=== PATIENT | male | born 1960 | race Caucasian/White ===

== ENCOUNTER 2017-04-25 12:28 | Emergency (ER) | payer OTHER ==
[~2017-04-25] VITALS: Ht 165.1 cm; Wt 72.7 kg
[~2017-04-25 12:28] MED LIST: ADVAIR 250/28 DISKUS IH; ALLERGY MED; ASPIRIN E.C. 8181 MG PO; CETIRIZINE PO; COZAAR 50MG50 MG/TAB PO; DAILY MULTI VIT1 TAB PO; FLEXERIL 1010 MG/TAB PO; LIPITOR 10MG10 MG PO; LISINOPRIL/HCTZ1 TAB PO; MUCINEX 60600 MG/TA1 PO; NORCO 325 MG-51 TAB PO; PHENERGAN W/CO120 ML PO; RT ADVAIR 228 DISKUS IH; SINGULAIR 110 MG/TAB PO; VENTOLIN0.09 MG IH; VITAMINC500CH PO; ZITHROMAX 250M250 MG PO
[2017-04-25 12:31] VITALS: BP 145/85; TEMP 97.7
[2017-04-25 13:39] VITALS: PULSE 69
== END 2017-04-25 13:40 | disposition home or self-care (01) ==
LOC: COL.ER 12:28
DX: S30.0XXA Contusion of lower back and pelvis, initial encounter (principal); Z79.82 Long term (current) use of aspirin; Z98.890 Other specified postprocedural states; W18.31XA Fall on same level due to stepping on an object, initial encounter; Y92.009 Unspecified place in unspecified non-institutional (private) residence as the place of occurrence of the external cause

== ENCOUNTER 2019-03-18 22:11 | Emergency (ER) | payer OTHER ==
[~2019-03-18] VITALS: Ht 165.1 cm; Wt 76.4 kg
[2019-03-18 22:21] VITALS: BP 157/94; TEMP 98.2
[2019-03-18] MEDS ORDERED: AMBIEN 10MG10 MG PO (22:41)
[2019-03-18 23:48] VITALS: PULSE 99
== END 2019-03-18 23:49 | disposition home or self-care (01) ==
LOC: COL.ER 22:11
DX: S16.1XXA Strain of muscle, fascia and tendon at neck level, initial encounter (principal); J45.909 Unspecified asthma, uncomplicated; E78.5 Hyperlipidemia, unspecified; I10 Essential (primary) hypertension; Z79.82 Long term (current) use of aspirin; Z79.51 Long term (current) use of inhaled steroids; Z87.891 Personal history of nicotine dependence; V43.52XA Car driver injured in collision with other type car in traffic accident, initial encounter

== ENCOUNTER 2022-05-28 14:45 | Outpatient (CLI) | payer MEDICARE ==
[~2022-05-28] VITALS: Ht 165.1 cm; Wt 77.9 kg
[~2022-05-28 14:45] MED LIST changes: +AMBIEN 10MG10 MG PO
[2022-05-28 15:13] VITALS: BP 111/76; PULSE 79; TEMP 97.8
== END 2022-05-28 16:27 ==
LOC: EUO 14:45
DX: Z79.899 Other long term (current) drug therapy (principal)
CPT/HCPCS: J2182

== ENCOUNTER 2022-06-25 14:59 | Outpatient (CLI) | payer MEDICARE ==
[~2022-06-25] VITALS: Ht 165.1 cm; Wt 80.9 kg
[2022-06-25] MEDS ORDERED: KLONOPIN 0.5MG0.5 MG PO (15:50)
[2022-06-25] MEDS ORDERED: ZOLOFT 50MG50 MG PO (15:51)
[2022-06-25 15:53] VITALS: BP 103/84; PULSE 78; TEMP 97.8
== END 2022-06-25 17:02 | disposition home or self-care (01) ==
LOC: EUO 14:59
DX: Z79.899 Other long term (current) drug therapy (principal)
CPT/HCPCS: J2182

== ENCOUNTER 2022-08-21 15:50 | Outpatient (CLI) | payer MEDICARE ==
[~2022-08-21] VITALS: Ht 165.1 cm; Wt 79.7 kg
[~2022-08-21 15:50] MED LIST changes: +KLONOPIN 0.5MG0.5 MG PO; +ZOLOFT 50MG50 MG PO
[2022-08-21 16:11] VITALS: BP 133/90; PULSE 81; TEMP 98.4
== END 2022-08-21 16:39 | disposition home or self-care (01) ==
LOC: EUO 15:50
DX: Z79.899 Other long term (current) drug therapy (principal)
CPT/HCPCS: J2182

== ENCOUNTER 2022-11-16 12:46 | Outpatient (CLI) | payer MEDICARE ==
[~2022-11-16] VITALS: Ht 165.1 cm; Wt 79.9 kg
[2022-11-16 13:09] VITALS: BP 125/82; PULSE 72; TEMP 97.6
== END 2022-11-16 13:40 | disposition home or self-care (01) ==
LOC: EUO 12:46
DX: Z51.81 Encounter for therapeutic drug level monitoring (principal)
CPT/HCPCS: J2182

== ENCOUNTER 2022-12-18 07:57 | Outpatient (CLI) | payer MEDICARE ==
[~2022-12-18] VITALS: Ht 165.1 cm; Wt 82.0 kg
[2022-12-18 08:37] VITALS: BP 140/84; PULSE 85; TEMP 98.1
== END 2022-12-18 08:54 | disposition home or self-care (01) ==
LOC: EUO 07:57
DX: Z79.899 Other long term (current) drug therapy (principal)
CPT/HCPCS: J2182

== ENCOUNTER 2023-01-15 12:57 | Outpatient (CLI) | payer MEDICARE ==
[~2023-01-15] VITALS: Ht 165.1 cm; Wt 80.2 kg
[2023-01-15 13:40] VITALS: BP 123/81; PULSE 85; TEMP 97.8
== END 2023-01-15 13:47 ==
LOC: EUO 12:57
DX: Z51.81 Encounter for therapeutic drug level monitoring (principal)
CPT/HCPCS: J2182

== ENCOUNTER 2023-03-12 14:03 | Outpatient (CLI) | payer MEDICARE ==
[~2023-03-12] VITALS: Ht 165.1 cm; Wt 79.0 kg
[2023-03-12 14:00] VITALS: BP 117/82; PULSE 80; TEMP 97.8
== END 2023-03-12 14:40 | disposition home or self-care (01) ==
LOC: EUO 14:03
DX: Z51.81 Encounter for therapeutic drug level monitoring (principal)
CPT/HCPCS: J2182

== ENCOUNTER 2023-07-02 15:37 | Outpatient (CLI) | payer MEDICARE ==
[~2023-07-02] VITALS: Ht 165.1 cm; Wt 77.3 kg
[2023-07-02 15:59] VITALS: BP 118/78; PULSE 67; TEMP 97
== END 2023-07-02 16:00 | disposition home or self-care (01) ==
LOC: EUO 15:37
DX: J33.9 Nasal polyp, unspecified (principal)
CPT/HCPCS: J2182

== ENCOUNTER 2023-07-30 13:52 | Outpatient (CLI) | payer MEDICARE ==
[~2023-07-30] VITALS: Ht 165.1 cm; Wt 78.9 kg
[2023-07-30 14:14] VITALS: BP 111/73; PULSE 78; TEMP 98.5
[2023-07-30] MEDS ORDERED: NUCALA100 MG/1 M SQ (14:17)
--- NOTE | 2023-07-30 14:25 | NUR ---
Pt tolerated nucala without issue. He exits dept with steady gait.
[2023-08-04] MEDS ORDERED: BENTYL 20MG20 MG/TAB PO (15:52)
[2023-08-04] MEDS ORDERED: CRESTOR20 MG PO (15:53)
[2023-08-04] MEDS ORDERED: COLESTID 1GM1 G PO (15:54)
[2023-08-04] MEDS ORDERED: PRIL40 PO (15:54)
[2023-08-04] MEDS ORDERED: KLONOPIN 0.5MG0.5 MG PO (15:56)
== END 2023-07-30 14:25 | disposition home or self-care (01) ==
LOC: EUO 13:52
DX: J33.9 Nasal polyp, unspecified (principal)
CPT/HCPCS: J2182

== ENCOUNTER 2023-11-01 10:40 | Outpatient (CLI) | payer MEDICARE ==
[~2023-11-01] VITALS: Ht 162.6 cm; Wt 82.2 kg
[~2023-11-01 10:40] MED LIST changes: +BENTYL 20MG20 MG/TAB PO; +COLESTID 1GM1 G PO; +CRESTOR20 MG PO; +NUCALA100 MG/1 M SQ; +PRIL40 PO
[2023-11-01 10:58] VITALS: BP 145/88; PULSE 68; TEMP 98.1
[2023-11-01] MEDS ORDERED: Mepolizumab 100 MG VIAL SQ ONE (11:00)
--- NOTE | 2023-11-01 11:24 | NUR ---
PT TOLERATED INJECTION WELL. AMBULATES INDEPENDENTLY TO MAIN LOBBY FOLLOWING INJECTION AND VS REMAINED WITHIN NORMAL LIMITS.
== END 2023-11-01 11:25 | disposition home or self-care (01) ==
LOC: EUO 10:40
DX: J33.9 Nasal polyp, unspecified (principal)
CPT/HCPCS: J2182

== ENCOUNTER 2023-11-29 09:49 | Outpatient (CLI) | payer MEDICARE ==
[2023-11-29] MEDS ORDERED: Mepolizumab 100 MG VIAL SQ ONE (10:00)
[2023-11-29 10:18] VITALS: BP 136/86; PULSE 71; TEMP 98.2
== END 2023-11-29 10:27 ==
LOC: EUO 09:49
DX: J33.9 Nasal polyp, unspecified (principal)
CPT/HCPCS: J2182

== ENCOUNTER 2024-04-18 12:54 | Outpatient (CLI) | payer MEDICARE ==
[~2024-04-18] VITALS: Ht 162.6 cm; Wt 81.2 kg
[2024-04-18 13:02] VITALS: BP 132/86; PULSE 81; TEMP 98.2
[2024-04-18] MEDS ORDERED: Mepolizumab 100 MG VIAL SQ ONE (13:15)
== END 2024-04-18 13:25 | disposition home or self-care (01) ==
LOC: EUO 12:54
DX: J33.9 Nasal polyp, unspecified (principal)
CPT/HCPCS: J2182

== ENCOUNTER 2024-06-21 11:58 | Emergency (ER) | payer MEDICARE ==
[~2024-06-21] VITALS: Ht 165.1 cm; Wt 122.7 kg
[2024-06-21 12:08] VITALS: TEMP 98.3
[2024-06-21] MEDS ORDERED: NS 500 ML IV ONE (12:45)
[2024-06-21 12:46] LABS: BASO % 0.2 % (0.0-2.0); EOS % 0.2 % (0.0-4.0); GRAN # 6.8 K/mm3 (1.4-6.5); GRAN % 67.3 % (42.2-75.2); HEMATOCRIT 42.3 % (42.0-52.0); HEMOGLOBIN 14.2 g/dl (13.5-18.0); LYMPH # 2.6 K/mm3 (1.2-3.4); LYMPH % 25.2 % (20.0-51.0); MEAN CELL VOLUME 93 fl (80.0-100.0); MEAN CORPUSCULAR HEMOGLOBIN 31 pg (27-31); MEAN CORPUSCULAR HGB CONC 34 g/dl (33.0-37.0); MEAN PLATELET VOLUME 11.2 fl (7.4-10.4); MONO # 0.7 K/mm3 (0.1-0.6); MONO % 6.8 % (1.7-9.3); PLATELET COUNT 230 K/mm3 (130-400); RED BLOOD COUNT 4.53 M/mm3 (4.20-5.60); REDCELL DISTRIBUTION WIDTH-CV 12.2 % (11.5-14.5)
[2024-06-21 13:02] LABS: ALANINE AMINOTRANSFERASE 20 U/L (0-55); ALBUMIN 3.7 g/dL (3.4-4.8); ALKALINE PHOSPHATASE 81 U/L (40-150); ANION GAP 10 mmol/L (7-16); AST,SGOT 20 U/L (5-34); BILIRUBIN,TOTAL 0.6 mg/dL (0.2-1.2); BLOOD UREA NITROGEN 15 mg/dL (8-26); CALCIUM 9.3 mg/dL (8.4-10.2); CHLORIDE 103 mEq/L (98-107); CREATININE, serum 1.17 mg/dL (0.72-1.25); GLUCOSE 118 mg/dL (70-99); LIPASE 37 U/L (8-78); POTASSIUM 3.9 mEq/L (3.5-4.5); SODIUM 136 mEq/L (136-145); TOTAL PROTEIN 7.3 g/dl (6.2-8.1)
[2024-06-21 13:21] LABS: TROPONIN-I < 0.010 ng/mL (0.00-0.033)
[2024-06-21 15:43] VITALS: BP 120/80; PULSE 63
== END 2024-06-21 15:43 | disposition home or self-care (01) ==
LOC: COL.ER 11:58
PROVIDERS: Emergency Medicine
DX: R07.89 Other chest pain (principal); R53.83 Other fatigue; Z79.82 Long term (current) use of aspirin
CPT/HCPCS: J7040

== ENCOUNTER 2024-08-08 16:00 | Outpatient (CLI) | payer MEDICARE ==
[~2024-08-08] VITALS: Ht 165.1 cm; Wt 79.7 kg
[2024-08-08 16:13] VITALS: BP 155/105; PULSE 84; TEMP 98.5
[2024-08-08] MEDS ORDERED: Mepolizumab 100 MG VIAL SQ ONE (16:30)
== END 2024-08-08 16:35 | disposition home or self-care (01) ==
LOC: EUO 16:00
DX: J33.9 Nasal polyp, unspecified (principal); Z79.899 Other long term (current) drug therapy
CPT/HCPCS: J2182